=== PATIENT | female | born 1955 | race American Indian/Alaskan Native ===

== ENCOUNTER 2016-08-17 12:38 | Emergency (ER) | payer MEDICAID ==
[2016-08-17 13:23] VITALS: BP 135/87
[2016-08-17] MEDS ORDERED: FLEXERIL PO ONE (14:24)
[2016-08-17] MEDS ORDERED: TORADOL IM ONE (14:24)
[2016-08-17] MEDS ORDERED: NORCO 5/325 PO ONE (14:25)
--- NOTE | 2016-08-17 16:00 | XRay Report ---
Lumbar spine: AP and lateral projections demonstrates mild anterior traction spurs predominantly from L3-L5. There is mild interspace narrowing at L4-5 and L5-S1. The vertebral height and alignment are maintained and the bones are well-mineralized. Of incidental note is a popcorn type calcification to the left the bladder consistent with uterine fibroid. Impressions: Lower lumbar degenerative spondylosis and discogenic narrowing. No acute findings.
== END 2016-08-17 16:30 | disposition home or self-care (01) ==
LOC: EDSEX → ED 12:38 → EDBD 12:38 → ED 16:30
DX: M47.816 Spondylosis without myelopathy or radiculopathy, lumbar region (principal); M54.5 Low back pain; I10 Essential (primary) hypertension; J44.9 Chronic obstructive pulmonary disease, unspecified
CPT/HCPCS: 72100; 96372; 99282; J1885

== ENCOUNTER 2020-12-13 10:04 | Outpatient (CLI) | payer MEDICARE ==
--- NOTE | 2020-12-13 11:50 | Cat Scan Report ---
CT CHEST WITHOUT CONTRAST INDICATION / CLINICAL INFORMATION: ATELECTASIS, PARALIZED DIAPHRAGM . TECHNIQUE: Axial CT images were obtained through the chest without contrast. Sagittal and coronal reformatted im ages. All CT scans at this location are performed using CT dose reduction for ALARA by means of autom ated exposure control. COMPARISON: Chest x-ray dated 04/15/2018 FINDINGS: HEART: Stable borderline heart size. No pericardial abnormality. THORACIC AORTA: Mild atherosclerotic calcification without acute abnormality. MEDIASTINUM and GIANFRANCO: No significant abnormality. No evidence for mass or pathologic adenopathy. LUNGS: There is persistent elevation of the left hemidiaphragm by 1-2 rib levels compared to the righ t side. Minor compressive atelectasis is noted in the left lower lobe. Otherwise, the lungs are clear with no evidence for parenchymal disease, nodule or infiltrate. PLEURA: No significant pleural effusion. No pneumothorax. SKELETAL SYSTEM: No significant abnormality. UPPER ABDOMEN: No significant abnormality. ADDITIONAL FINDINGS: None. IMPRESSION: Borderline heart size. Elevated left hemidiaphragm as described. Mild atelectatic changes at the left lung base. No thoracic mass or adenopathy is detected on noncontrast CT. Signer Name: Jeremiah Felix Jr, MD Signed: 12/13/2020 11:45 AM Workstation Name: [id number]
== END 2020-12-13 10:05 | disposition home or self-care (01) ==
LOC: CT 10:04
PROVIDERS: ATTEND Specialist
DX: J98.11 Atelectasis (principal); J98.6 Disorders of diaphragm
CPT/HCPCS: 71250

== ENCOUNTER 2021-03-02 14:52 | Outpatient (CLI) | payer MEDICARE ==
--- NOTE | 2021-03-02 15:47 | XRay Report ---
Left shoulder 3 views INDICATION: Shoulder pain FINDINGS: Advanced glenohumeral degenerative change with joint space narrowing in the glenohumeral britt int. No acute fracture or dislocation. AC joint appears normal. Signer Name: Sandoval Coello MD Signed: 03/02/2021 3:43 PM Workstation Name: [id number]
--- NOTE | 2021-03-02 15:48 | XRay Report ---
Left ankle 3 views INDICATION: Pain FINDINGS: Diffuse swelling within the ankle. Talar dome appears intact. Calcaneus appear normal. No a cute fracture. Signer Name: Sandoval Coello MD Signed: 03/02/2021 3:44 PM Workstation Name: [id number]
== END 2021-03-02 14:53 | disposition home or self-care (01) ==
LOC: XRAY 14:52
PROVIDERS: ATTEND Physical Medicine & Rehabilitation
DX: M19.012 Primary osteoarthritis, left shoulder (principal); M79.89 Other specified soft tissue disorders; M25.572 Pain in left ankle and joints of left foot